=== PATIENT | female | born 1965 | race Two or more races ===

== ENCOUNTER 2019-04-03 00:55 | Inpatient (IN) | payer BC ==
[2019-04-02 14:58] LABS: INR 0.99
[2019-04-03] VITALS (18 sets, daily range): BP systolic 92–116; BP diastolic 60–78
[~2019-04-03] VITALS: Ht 149.9 cm; Wt 50.8 kg
[~2019-04-03 00:55] MED LIST: IBUP200C74 PO; MELO-205 PO; POTA99TA3 PO; VITA-200 PO
--- NOTE | 2019-04-03 02:21 | LEVENE H&P ---
DATE OF ADMISSION: April 03, 2019 IDENTIFICATION/CHIEF COMPLAINT Doris is a 53-year-old woman with a chief complaint of left knee pain. HISTORY OF PRESENT ILLNESS Patient has a longstanding history of arthritis, progressively painful and debilitating, refractory to conservative care. Surgery is indicated to relieve symptoms after failure of nonoperative measures. PAST MEDICAL HISTORY Notable for remote history of irregular heartbeat, history of rheumatoid arthritis, history of vertigo. PAST SURGICAL HISTORY Notable for hip replacement. ALLERGIES No drug allergies. She does have significant NUT ALLERGY. CURRENT MEDICATIONS Only Mobic and ttgw-szv-jvdbulb medications. FAMILY HISTORY Notable for no heritable diseases. SOCIAL HISTORY Negative for tobacco and alcohol use. REVIEW OF SYSTEMS Negative. PHYSICAL EXAMINATION GENERAL: This is a healthy female. HEENT: Normocephalic, atraumatic. NECK: Supple. LUNGS: Clear. HEART: Regular. ABDOMEN: Soft. ORTHOPEDIC: The left knee has a large effusion present. She has crepitus noted in the lateral patellofemoral compartment. Stiff at end range. Gross stability is good. Extensor function intact. RADIOGRAPHIC STUDIES Radiographs demonstrate degenerative changes noted. ASSESSMENT Left knee rheumatoid arthritis, refractory to conservative care. PLAN Doris and I discussed the options. Ongoing rheumatologic management would certainly be safe and reasonable, as well as ongoing symptomatic supportive care. The option of knee arthroplasty was discussed, and she would like very strongly to proceed. This will consist of a total knee arthroplasty. Nature of the procedure, risks, benefits, and the anticipated rehab course were outlined. Risks of the procedure include but are not limited to , major medical or anesthetic complication, infection, neurovascular injury, blood transfusion, stiffness, scarring, fracture, tendon rupture or instability, implant loosening/migration/failure, persistent or recurrent pain, need for additional surgery, and other unforeseen. She understands and wishes to proceed. Signed permit is placed in the chart. No guarantees are given or implied. JUANJOSE
[2019-04-03] MEDS: PREGABALIN 150 MG CAPSULE PO ONE ×2 (07:53→09:01)
[2019-04-03] MEDS ORDERED: fentaNYL CITR 100 MCG/2 ML AMP ONE ×3 (08:57→15:23)
[2019-04-03] MEDS ORDERED: LIDOCAINE MPF 1% 5 ML VIAL ONE (08:58)
[2019-04-03] MEDS ORDERED: PROPOFOL EMUL(*) 10MG/ML 20 ML 20 ML ONE (08:58)
[2019-04-03] MEDS ORDERED: ACETAMINOPHEN 500 MG TAB PO ONE (09:45)
[2019-04-03] MEDS ORDERED: ROPIVACAINE/EPI/CLONIDINE/KET 50 ML SYRINGE INJ ONE (09:45)
[2019-04-03] MEDS ORDERED: ceFAZolin(*) 1 GM VIAL 1 GM in NS(*) 0.9% 100 ML MINI-BAG 100 ML IVPB ONE (09:45)
[2019-04-03] MEDS ORDERED: MIDAZOLAM 2 MG/2 ML VIAL IVP PRN (09:45)
[2019-04-03] MEDS ORDERED: CELECOXIB 200 MG CAP PO ONE (09:45)
[2019-04-03] MEDS ORDERED: LIDOCAINE/SOD BICARB 8.4% SYR ID ONE (09:45)
[2019-04-03] MEDS ORDERED: NORMOSOL R SOLN(*) 1000 ML BAG 1,000 ML IV PRN ×2 (09:45→14:20)
[2019-04-03] MEDS ORDERED: TRANEXAMIC AC 1000 MG/10ML SDV 1,000 MG in DEXTROSE 5% 50 ML BAG 50 ML IV ONE (09:45)
[2019-04-03] MEDS ORDERED: FAMOTIDINE 20 MG TAB PO ONE (09:45)
[2019-04-03] MEDS ORDERED: VANCOMYCIN 1 GM VIAL ONE (09:52)
[2019-04-03] MEDS ORDERED: DEXAMETHASONE SOD PHOS 10MG/ML ONE ×2 (11:45→15:00)
[2019-04-03] MEDS ORDERED: ONDANSETRON 4 MG/2 ML VIAL ONE (11:46)
[2019-04-03] MEDS ORDERED: KETAMINE HCL 200 MG/20 ML MDV ONE ×2 (11:49→12:54)
[2019-04-03] MEDS ORDERED: diphenhydrAMINE 25 MG CAP PO PRN (14:20)
[2019-04-03] MEDS ORDERED: ZOLPIDEM TARTRATE 5 MG TAB PO PRN (14:20)
[2019-04-03] MEDS ORDERED: BISACODYL 10 MG SUPP PR PRN (14:20)
[2019-04-03] MEDS ORDERED: MAGNESIUM HYDROXIDE* 30ML UDCP PO PRN (14:20)
[2019-04-03] MEDS ORDERED: ACETAMINOPHEN 325 MG TAB PO PRN (14:20)
[2019-04-03] MEDS ORDERED: DIAZEPAM 5 MG TAB PO PRN (14:20)
[2019-04-03] MEDS ORDERED: PROMETHAZINE 25 MG/ML 1 ML AMP IVP PRN (14:20)
[2019-04-03] MEDS ORDERED: BENZOCAINE/MENTHOL 1 EACH LOZG PO PRN (14:20)
[2019-04-03] MEDS ORDERED: FLUSH 10 ML SYR IVP PRN (14:20)
[2019-04-03] MEDS ORDERED: diphenhydrAMINE 50 MG/ML VIAL IVP PRN (14:20)
[2019-04-03] MEDS ORDERED: HYDROmorphone HCL 2 MG/ML SDV ONE (14:42)
--- NOTE | 2019-04-03 16:19 | Hospitalist Consultation ---
History of Present Illness Requesting Physician Dr. Keith Reason for Consult Medical Management of Comorbidities Chief Complaint s/p left knee replacement History of Present Illness She was admitted s/p left knee replacement. It is reported the surgery went well and without complication. History Problems: (1) RA (rheumatoid arthritis) Status: Chronic Home Meds Reported Medications Meloxicam (MELOXICAM) 7.5 Mg Tablet, 15 MG PO PRN 03/28/19 Potassium Gluconate (POTASSIUM GLUCONATE) 99 Mg Tablet.er, 99 MG PO QDAY 03/28/19 Vitamin E Acetate (VITAMIN E) 400 Unit Capsule, 400 UNIT PO QDAY, CAPSULE 03/28/19 Discontinued Reported Medications Ibuprofen (ADVIL) 200 Mg Capsule, 1-2 CAP PO Q6-8H, CAPSULE 03/28/19 Allergies: Coded Allergies: almond (Verified Allergy, Unknown, 03/28/19) corn (Verified Allergy, Unknown, 03/28/19) Patient History: FH: heart disease FATHER BROTHER OR SISTER BROTHER OR SISTER FH: rheumatoid arthritis FATHER BROTHER OR SISTER BROTHER OR SISTER Hx Smoking: No Smoking Status: Never Smoker Caffeine Intake: Coffee Caffeine/Cups Per Day: 2 CPD Hx Alcohol Use: No Hx Substance Use Disorder: No Review of Systems All Systems Reviewed/Normal: Yes, Except as Noted Musculoskeletal: Pain (to the surgical site) Exam Vital Signs Vital Signs Date Time Temp Pulse Resp B/P (MAP) Pulse Ox O2 Delivery O2 Flow Rate FiO2 04/03/19 15:57 97.8 64 12 101/67 (78) 95 Nasal Cannula 1.0 General Appearance: Alert, Awake, No Acute Distress, Afebrile Neuro: No Gross deficits Cardiovascular: Regular Rate and Rhythm Respiratory: No Respiratory Distress, Clear to Auscultation Psych: Alert & Oriented X3, Appropriate Mood & Affect Assessment and Plan Problems: (1) Status post left knee replacement Status: Acute Assessment & Plan: Followed by Dr. Keith. She will be placed on Aspirin for DVT prophylaxis. (2) RA (rheumatoid arthritis) Status: Chronic Assessment & Plan: She is on chronic treatment with Meloxicam. This will be held while receiving Celebrex. Venous Thromboembolism Antithrombotics Is Pt On Any Antithrombotics?: No TIM DEUTSCH Apr 03, 2019 16:19
[2019-04-03] MEDS: APAP/HYDROCODONE 325/7.5 TAB PO PRN ×2 (16:38→20:49)
[2019-04-03] MEDS: CELECOXIB 200 MG CAP PO SCH (16:38)
--- NOTE | 2019-04-03 16:53 | NUR ---
Physical Therapy Impression PT eval complete. Pt with high levels of pain. Pt with minimal interaction as a result. CPM fit for patient and left on at 0-30 degrees. Pt left with family and nursing present in room. Physical Therapy Goals 1. Francie bed mobility 2. Francie sit to stand transfers 3. Francie ambulation of 150 ft with use of least restrictive device 4. Francie ability to ascend/descend 7 stairs 5. Independent CPM use. Patient's Goals
--- NOTE | 2019-04-03 16:53 | NUR ---
This Physical Therapist or Resort Manager was present for the entire physical therapy session directing the services, making the skilled judgement, and was not engaged in treating another patient or doing another task at the same time as the treatment session. Addendum: 04/03/19 at 1653 by RHONDA REICH PT Amended: Links added.
--- NOTE | 2019-04-03 17:24 | RADIOLOGY IMAGING REPORT ---
FACILITY: [facility] PATIENT NAME: Doris Simons : 1965 MR: [id number] V: [id number] EXAM DATE: ORDERING PHYSICIAN: FROYLAN GARSIA TECHNOLOGIST: Location: [facility] Patient: Doris Simons : 1965 Visit/Account:[id number] Date of Sevice: 04/03/2019 Technique: KNEE LIMITED LEFT HISTORY: Post op Left knee arthroplasty Comparison studies: Postop FINDINGS: There is no acute fracture. Noted is a left knee arthroplasty. The alignment of the left knee is congruent. Expected adjacent operative changes are noted. IMPRESSION: 1. Left knee arthroplasty without evidence of acute hardware complication. Report Dictated By: Ryan Robledo DO at 04/03/2019 5:01 PM Report E-Signed By: Ryan Robledo DO at 04/03/2019 5:18 PM WSN:[id number]
[2019-04-03] MEDS ORDERED: KETOROLAC 15 MG/ML VIAL IVP ONE (20:25)
[2019-04-03] MEDS ORDERED: MORPHINE 2 MG/ML SYR IVP PRN (20:25)
[2019-04-03] MEDS: ceFAZolin(*) 1 GM VIAL 1 GM in NS(*) 0.9% 100 ML MINI-BAG 100 ML IVPB SCH (20:51)
[2019-04-03] MEDS ORDERED: NS(*) 0.9% 250 ML BAG 250 ML ONE (20:56)
[2019-04-04 00:08] VITALS: BP 86/63
[2019-04-04] MEDS: APAP/HYDROCODONE 325/7.5 TAB PO PRN ×4 (00:55→15:27)
[2019-04-04 03:25] VITALS: BP 82/57
[2019-04-04] MEDS: ceFAZolin(*) 1 GM VIAL 1 GM in NS(*) 0.9% 100 ML MINI-BAG 100 ML IVPB SCH ×2 (03:31→11:49)
[2019-04-04 06:04] LABS: PLATELET COUNT, AUTOMATED 204 K/uL (150-450)
--- NOTE | 2019-04-04 06:11 | OPERATIVE REPORT 1 ---
EVENT DATE: April 03, 2019 SURGEON: Pal Keith MD ANESTHESIOLOGIST: Rogelio Miranda MD ANESTHESIA: General plus spinal. FAT PURIFICATION WORKER: Benedicto Lopez PA-C PREOPERATIVE DIAGNOSIS Left knee rheumatoid arthritis. POSTOPERATIVE DIAGNOSIS Left knee rheumatoid arthritis. PROCEDURE PERFORMED Left total knee arthroplasty. ESTIMATED BLOOD LOSS Minimal. DRAINS None. SPECIMENS None. COMPLICATIONS None apparent. TOURNIQUET TIME 68 minutes. IMPLANTS USED FantasyHubathlon knee system with a 1 left PS femur, 1 standard tibial baseplate, a 27 mm [place] symmetric all-polyethylene patellar button, and an 11 mm PS tibial tray liner. Polyethylene is X3. INDICATIONS FOR PROCEDURE Doris is a 53-year-old woman with rheumatoid arthritis and intractable pain related to knee erosion, refractory to conservative care. Surgery is indicated to relieve symptoms after failure of nonoperative measures. DESCRIPTION OF PROCEDURE Patient was taken to the operating room and placed supine on the operating table. General anesthesia was induced after a spinal block was placed by the anesthesiologist. Antibiotics were administered IV, along with TXA. Left lower extremity was prepped and draped in the usual sterile fashion for knee arthroplasty. Limb was exsanguinated with an Esmarch bandage. Tourniquet was inflated to 250 mmHg. A midline longitudinal incision was made and carried down through the skin and subcutaneous tissue to the extensor mechanism. Full- thickness flap was developed far enough medially to allow medial parapatellar arthrotomy to be performed. Patella was everted. Knee was brought into a flexed position. Fat pad and anterior horns of the menisci were debrided; there was no ACL. PCL was intact. There was grade 4 change in the lateral compartment and some lesser degrees of erosion in the patellofemoral and medial compartments. A subperiosteal capsular release was performed 1 cm around the upper plateau to start to balance the knee. A step drill was used to enter the distal femur. A 69-wybu-apzp alignment dallin was used to engage the isthmus. Cut was set for 6 degrees of valgus relative to the anatomic axis. Patient is extremely tiny, and the full dallin could not be engaged, but good alignment was achieved with intramedullary means. The 10 mm resection block was applied and pinned. Cuts were made with an oscillating saw. Due to erosion, tissue contracture, and small size, attention needed to be turned at this time to the tibial preparation to make sufficient space for the feet on the rotational guide, so the extramedullary guide was applied to the tibia, positioned for varus, valgus, posterior slope and rotation. This was set to resect 2 mm from the relatively deficient lateral tibial plateau. It was dropped down a couple millimeter to assure an adequate cut. Block was pinned. Extramedullary alignment check was made, and cut was made with an oscillating saw. At this point, attention was returned to femoral preparation. The external rotation guide was applied for 3 degrees of external rotation relative to the posterior condyles. In spite of valgus alignment, there was no hypoplasia. The size 1 was actually optimal without risk of notching. In fact, the patient is quite small, and even the 1 will be a bit on the large size, but should be excellent for mediolateral fit. It is going to be a bit large on the mhyovrsz-ne-ccwriacon fit. The 4-in-1 cutting block was applied. Anterior, posterior, posterior chamfer and anterior chamfer cuts were made respectively. PS block was centered. Medial and lateral bone was removed from the box. Trial femur had nice laow-ad-qlmu fit, with the exception that the anterior flange does overhang with a gap. There was still satisfactory support. Some additional cement will be packed up under the anterior flange and the anterior femur to optimize implant stability. The tibia had a size 1 for optimal bony coverage without soft tissue overhang. The baseplate was applied. Appropriate rotational and translational position of component confirmed, and the fin was punched. Next, the patella was taken from a starting thickness of 18 to a residual of 14 with a free-hand cut. The size 27, which was the smallest, provided optimal bony coverage without soft tissue overhang. Lug holes were drilled, and the patella tracked nicely with a no- touch technique in spite of the elevation of the anterior flange fo the trochlea on the trochlear implant. The surfaces were then copiously lavaged. Mix of methacrylate was made. Components were cemented in single stage. Care was taken to pack some cement up under the anterior flange of the femur, but without extending this all the way out to the edge, to optimize support and structural stability. After the cement had cured, tourniquet was deflated. Meticulous hemostasis was assured. The wound was copiously lavaged. The 11 PS tibial trial liner filled up the gap ideally. The knee was dropped to full extension without hyperextension, providing optimal soft tissue tension and stability. The actual liner was locked into the cleaned and dried baseplate. Once reduced, the arthrotomy was closed in flexion with #2 Ethibond, subcu with 3-0 Vicryl, and the skin with ZipLine, Xeroforms, 4x4, dry sterile dressing, and compression wrap. Patient was awakened from anesthesia and taken to the recovery room stable. She had tolerated the procedure well. Plan is for standard TKA rehab protocol. [facility]LLIS HOSPITALRoxanne
--- NOTE | 2019-04-04 07:01 | Hospitalist Progress Note ---
Subjective Progress Notes Subjective Some difficulty with pain control overnight but ketorolac worked well. O2 sats low on RA. Physical Exam Vital Signs Date Time Temp Pulse Resp B/P (MAP) Pulse Ox O2 Delivery O2 Flow Rate FiO2 04/04/19 04:49 84 04/04/19 03:25 97.5 56 14 82/57 (65) Nasal Cannula 2.0 Intake and Output 04/04/19 07:02 Intake Total 3470 ml Output Total 50 ml Balance 3420 ml Intake Oral 70 ml IV Total 3400 ml Output Estimated Blood Loss 50 ml # Voids 4 General Appearance: Alert, Awake, No Acute Distress, Afebrile Cardiovascular: Regular Rate and Rhythm, Other (S1S2 are normal, No murmur, gallosps o;r rubs.) Respiratory: Clear to Auscultation Extremities: Soft and Non Tender, Warm, Pulses, Perfused Psych: Alert & Oriented X3, Appropriate Mood & Affect Result Diagram: 04/04/19 0549 Assessment and Plan Problems: (1) Status post left knee replacement Status: Acute Assessment & Plan: Followed by Dr. Keith. On Aspirin for DVT prophylaxis. Start PT today. Instructed as to proper use of inspirometer. (2) RA (rheumatoid arthritis) Status: Chronic Assessment & Plan: She is on chronic treatment with Meloxicam. This will be held while receiving Celebrex. Time Spent on Plan of Care: < 30 min Exam Sepsis Risk: No Definite Risk EHSAN GARCIA MD FACP Apr 04, 2019 07:01
[2019-04-04 07:26] VITALS: BP_SYST 90; BP_SYST 92; BP_DIAS 46; BP_DIAS 58
[2019-04-04] MEDS: CELECOXIB 200 MG CAP PO SCH (08:28)
[2019-04-04] MEDS ORDERED: ASPIRIN 325 MG TAB PO SCH (09:00)
[2019-04-04 12:00] VITALS: BP 117/69
--- NOTE | 2019-04-04 13:37 | NUR ---
Physical Therapy Impression Pt with good tolerance to both mobility and stair training. Supine to sit transfer performed with Francie, HOB raised. Pt performed sit<>stand transfers from EOB with SBA and use of RW. Pt ambulating 125 ft with SBA and use of RW. Pt with no complaints other than UE discomfort. Following ambulation, pediatric walker located that should reduce UE discomfort during ambulation. Pt able to ascend/descend 2 sets of 1 stair with CGAx1 and use of railing. Pt tolerating stair training well, reporting no difficulties. Verbal cues provided for foot sequencing. Supine therex handout reviewed with Pt, expresses understanding. Pt expressing concerns regarding pain medicine management. Pt left with all needs met and family present in room. Rec OP PT at discharge. Physical Therapy Goals 1. Francie bed mobility 2. Francie sit to stand transfers 3. Francie ambulation of 150 ft with use of least restrictive device 4. Francie ability to ascend/descend 7 stairs 5. Independent CPM use. Patient's Goals
--- NOTE | 2019-04-04 13:37 | NUR ---
This Physical Therapist or Cork Painter And Grader was present for the entire physical therapy session directing the services, making the skilled judgement, and was not engaged in treating another patient or doing another task at the same time as the treatment session. Addendum: 04/04/19 at 1337 by RHONDA REICH PT Amended: Links added.
[2019-04-04] MEDS ORDERED: HYDR-654 PO (15:25)
[2019-04-04] MEDS ORDERED: ASPI-757 PO (15:28)
--- NOTE | 2019-04-04 16:41 | NUR ---
This Physical Therapist or Aerial Installer was present for the entire physical therapy session directing the services, making the skilled judgement, and was not engaged in treating another patient or doing another task at the same time as the treatment session. Addendum: 04/04/19 at 1641 by RHONDA REICH PT Amended: Links added.
--- NOTE | 2019-04-04 16:42 | NUR ---
Physical Therapy Impression Pt states she is ready for discharge and has no concerns regarding mobility. Pt is near all PT goals and is safe for discharge home with OP PT. Education provided to Pt and family regarding adjustment of CPM settings. Physical Therapy Goals 1. Francie bed mobility 2. Francie sit to stand transfers 3. Francie ambulation of 150 ft with use of least restrictive device 4. Francie ability to ascend/descend 7 stairs 5. Independent CPM use. Patient's Goals
== END 2019-04-04 16:15 | disposition home or self-care (01) | DRG 470 ==
LOC: OR 00:55 → MED 15:55
PROVIDERS: ADMIT Orthopaedic Surgery; ATTEND Orthopaedic Surgery
PROC: 0SRD0J9 Replacement of Left Knee Joint with Synthetic Substitute, Cemented, Open Approach (ICD-10-PCS; principal; 2019-04-03 11:39)
DX: M06.062 Rheumatoid arthritis without rheumatoid factor, left knee (principal); Z96.641 Presence of right artificial hip joint
CPT/HCPCS: 36415; 85025; 85610; 86850; 86900; 86901; 97161; C1713; C1776; J0690; J1100; J1170; J1885; J2001; J2250; J2405; J2550; J2704; J3010; J3370; J3490; J7060